=== PATIENT | male | born 1930 | race Caucasian/White ===

== ENCOUNTER 2021-11-07 14:38 | Inpatient (IN) | payer OTHER, MEDICAID ==
[~2021-11-07] VITALS: Ht 167.6 cm; Wt 73.4 kg
[2021-11-07 15:14] LABS: Basophils # (auto) 0.1 10 ^3/uL (0-0.2); Basophils % (auto) 0.8 % (0.0-2.0); Eosinophils # (auto) 0 10 ^3/uL (0-0.8); Hematocrit 34.9 % (41.0-53.0); Hemoglobin 11.6 g/dL (13.5-17.5); Lymphocytes # (auto) 0.8 10 ^3/uL (0.4-5.4); Lymphocytes % (auto) 5.8 % (10.0-50.0); Mean Corpuscular Hemoglobin 30.5 pg (28.0-32.0); Mean Corpuscular Hgb Conc. 33.4 g/dL (32.0-36.0); Mean Corpuscular Volume 91.3 fL (80.0-100.0); Monocytes % (auto) 7.4 % (0.0-12.0); Neutrophils # (auto) 11.4 10 ^3/uL (1.6-8.6); Red Blood Cells 3.82 10^6/uL (4.5-5.90); Red Cell Distribution Width 15.1 % (11.8-14.3); White Blood Cell 13.3 10^3/uL (4.4-10.8)
[2021-11-07] MEDS ORDERED: methylPREDNISolone SOD SUCC 125 MG/2 ML VL IV ONE (15:30)
[2021-11-07 15:43] LABS: Albumin 3.4 g/dL (3.4-5.0); Calcium 9.5 mg/dL (8.5-10.1)
[2021-11-07 15:50] LABS: BUN/Creatinine Ratio 22.4; Bilirubin, Total 0.6 mg/dL (0.2-1.0); CRP High Sensitivity 15.9 mg/dL (< 0.3); Total Protein 8.3 g/dL (6.4-8.2)
[2021-11-07 16:21] LABS: Potassium 2.6 mmol/L (3.5-5.1)
[2021-11-07] MEDS ORDERED: POTASSIUM CHL 20 Meq TABLET PO ONE (16:30)
[2021-11-07] MEDS ORDERED: SODIUM CHLORIDE 0.9% 500 ML IV ONE ×2 (16:30→18:00)
[2021-11-07] MEDS ORDERED: POTASSIUM CHL 20MEQ/100ML 100 ML IV ONE (16:30)
[2021-11-07] MEDS: AZITHROMYCIN 500MG/ 250ML 250 ML IV ONE ×2 (17:28→20:46)
[2021-11-07] MEDS ORDERED: metroNIDAZOLE 500MG/100ML 100 ML IV ONE (17:45)
[2021-11-07] MEDS ORDERED: MORPHINE SULFATE INJ 2 MG/ml SYRG IV PRN ×2 (17:45)
[2021-11-07] MEDS ORDERED: ONDANSETRON HCL 4 MG/2 ML VIAL IV PRN (17:45)
[2021-11-07] MEDS ORDERED: NITROGLYCERIN 0.4 MG SL TAB SL PRN (17:45)
[2021-11-07] MEDS ORDERED: ALBUTEROL SULF HFA 90MCG INH 200DOSE IN PRN (17:45)
[2021-11-07] MEDS ORDERED: DEXTROSE (50%) 50ML SYRG IV PRN (18:00)
[2021-11-07] MEDS ORDERED: SODIUM CHLORIDE 0.9% 1,000 ML IV ONE (18:00)
[2021-11-07 18:24] VITALS: BP 143/79
[2021-11-07] MEDS: POTASSIUM CHL 20MEQ/100ML 100 ML IV SCH ×2 (19:47→22:30)
[2021-11-07 20:40] LABS: Albumin 3.2 g/dL (3.4-5.0); Calcium 9.3 mg/dL (8.5-10.1); Magnesium 2.5 mg/dL (1.6-2.6)
[2021-11-07 20:42] LABS: Basophils # (auto) 0 10 ^3/uL (0-0.2); Basophils % (auto) 0.2 % (0.0-2.0); Eosinophils # (auto) 0 10 ^3/uL (0-0.8); Hematocrit 33.7 % (41.0-53.0); Hemoglobin 11.2 g/dL (13.5-17.5); Lymphocytes # (auto) 1.1 10 ^3/uL (0.4-5.4); Lymphocytes % (auto) 8.5 % (10.0-50.0); Mean Corpuscular Hemoglobin 31.2 pg (28.0-32.0); Mean Corpuscular Hgb Conc. 33.1 g/dL (32.0-36.0); Mean Corpuscular Volume 94.2 fL (80.0-100.0); Monocytes # (auto) 0.5 10 ^3/uL (0-1.3); Monocytes % (auto) 4.3 % (0.0-12.0); Neutrophils # (auto) 10.8 10 ^3/uL (1.6-8.6); Red Blood Cells 3.58 10^6/uL (4.5-5.90); White Blood Cell 12.4 10^3/uL (4.4-10.8)
[2021-11-07 20:50] LABS: BUN/Creatinine Ratio 24.1; Bilirubin, Total 0.4 mg/dL (0.2-1.0); CRP High Sensitivity 14.4 mg/dL (< 0.3); Thyroid Stimulating Hormone 0.36 uIU/mL (0.358-3.74)
[2021-11-07 21:07] LABS: Calcium 9.4 mg/dL (8.5-10.1); Potassium 3.1 mmol/L (3.5-5.1)
[2021-11-07 21:09] LABS: BUN/Creatinine Ratio 24.3
[2021-11-07 22:00] VITALS: BP 154/65
[2021-11-07] MEDS: InsuLIN REG 1unit/0.01ml Soln (100units/ml) SC SCH (22:00)
[2021-11-07] MEDS ORDERED: METF-372 PO (22:38)
[2021-11-07] MEDS ORDERED: CARB25TA79 PO (22:38)
[2021-11-07] MEDS ORDERED: MONT-8 PO (22:38)
[2021-11-07] MEDS ORDERED: GABA800T97 PO (22:38)
[2021-11-07] MEDS ORDERED: METH4PAK3 PO (22:38)
[2021-11-07] MEDS ORDERED: LEVO-28 PO (22:38)
[2021-11-07] MEDS ORDERED: AZIT250T9 PO (22:38)
[2021-11-07] MEDS ORDERED: SIMV-13 PO (22:38)
[2021-11-07] MEDS ORDERED: GUAI120018 PO (22:38)
[2021-11-07] MEDS ORDERED: FURO40TA4 (22:38)
[2021-11-07] MEDS ORDERED: BENZ100C97 PO (22:38)
[2021-11-07] MEDS ORDERED: PANT40T PO (22:38)
[2021-11-07] MEDS ORDERED: PROP60CA37 PO (22:38)
[2021-11-07] MEDS ORDERED: B-CO-6 PO (22:38)
[2021-11-07] MEDS ORDERED: HYDR50TA15 PO (22:38)
[2021-11-07] MEDS: BUDESONIDE (INHALATION) 180 MCG IH IN SCH (22:57)
[2021-11-07] MEDS: ACCU-CHEK COMFORT CURVE STRIP VI SCH (23:31)
[2021-11-08 00:06] LABS: BUN/Creatinine Ratio 24.1; Calcium 8.9 mg/dL (8.5-10.1); Potassium 3.1 mmol/L (3.5-5.1)
[2021-11-08 05:00] VITALS: BP 143/86
[2021-11-08 05:22] LABS: Basophils # (auto) 0 10 ^3/uL (0-0.2); Basophils % (auto) 0.4 % (0.0-2.0); Eosinophils # (auto) 0 10 ^3/uL (0-0.8); Hematocrit 33.6 % (41.0-53.0); Hemoglobin 11.5 g/dL (13.5-17.5); Lymphocytes # (auto) 0.7 10 ^3/uL (0.4-5.4); Lymphocytes % (auto) 6.8 % (10.0-50.0); Mean Corpuscular Hemoglobin 31.2 pg (28.0-32.0); Mean Corpuscular Hgb Conc. 34.1 g/dL (32.0-36.0); Mean Corpuscular Volume 91.5 fL (80.0-100.0); Monocytes # (auto) 0.3 10 ^3/uL (0-1.3); Monocytes % (auto) 2.6 % (0.0-12.0); Neutrophils # (auto) 9.3 10 ^3/uL (1.6-8.6); Neutrophils % (auto) 90.2 % (37.0-80.0); Red Blood Cells 3.67 10^6/uL (4.5-5.90); Red Cell Distribution Width 15.2 % (11.8-14.3); White Blood Cell 10.3 10^3/uL (4.4-10.8)
[2021-11-08 05:53] LABS: Albumin 2.8 g/dL (3.4-5.0); Calcium 8.8 mg/dL (8.5-10.1)
[2021-11-08 05:56] LABS: Bilirubin, Total 0.4 mg/dL (0.2-1.0); Total Protein 7.4 g/dL (6.4-8.2)
[2021-11-08 06:01] LABS: BUN/Creatinine Ratio 25.1
[2021-11-08 06:02] LABS: Potassium 2.9 mmol/L (3.5-5.1)
[2021-11-08 06:15] LABS: Urine Bacteria NONE SEEN /hpf (None Seen); Urine Blood Negative /uL (Negative); Urine Hyaline Cast MOD /lpf (0 - 2); Urine Mucus FEW (None Seen); Urine Specific Gravity 1.017 (1.001-1.035); Urine WBC 1 /hpf (0 - 3)
[2021-11-08] MEDS: ACCU-CHEK COMFORT CURVE STRIP VI SCH ×4 (06:26→21:42)
[2021-11-08] MEDS: InsuLIN REG 1unit/0.01ml Soln (100units/ml) SC SCH ×4 (06:29→21:48)
[2021-11-08] MEDS ORDERED: POTASSIUM CHL 20 Meq TABLET PO ONE (08:15)
[2021-11-08] MEDS ORDERED: POTASSIUM EFFERVESENT TAB 25 MEQ PO ONE (08:30)
[2021-11-08 09:17] VITALS: BP 149/68
[2021-11-08] MEDS: DexAMETHasone SOD PHOS 10MG/1ML VIAL INJ IV SCH (09:45)
[2021-11-08] MEDS: ENOXAPARIN SOD 30 MG/0.3 ML SYRINGE SC SCH (09:46)
[2021-11-08] MEDS: AZITHROMYCIN 500MG/ 250ML 250 ML IV SCH (09:46)
[2021-11-08] MEDS: BUDESONIDE (INHALATION) 180 MCG IH IN SCH ×2 (10:45→21:24)
[2021-11-08 14:59] VITALS: BP 129/76
[2021-11-08] MEDS ORDERED: ALBUTEROL SULF HFA 90MCG INH 200DOSE IN SCH (16:45)
[2021-11-08] MEDS: INSULIN LANTUS (GLARGINE) 1 /0.01ml (100units/ml) SC SCH (16:45)
[2021-11-08 16:57] VITALS: BP 101/57
[2021-11-08 20:00] VITALS: BP 132/61
[2021-11-08] MEDS: ALBUTEROL SULF HFA 90MCG INH 200DOSE IN SCH (21:24)
[2021-11-08] MEDS: ATORVASTATIN 20 MG TAB PO SCH (21:48)
[2021-11-08] MEDS: CARBIDOPA W LEVODOPA 25/100mg TABLET PO SCH (21:48)
[2021-11-08] MEDS: MONTELUKAST SODIUM 10 MG TAB PO SCH (21:48)
[2021-11-08 22:00] VITALS: BP 132/61
[2021-11-09] VITALS (7 sets, daily range): BP systolic 130–152; BP diastolic 65–76
[2021-11-09] MEDS: CARBIDOPA W LEVODOPA 25/100mg TABLET PO SCH ×3 (05:45→21:55)
[2021-11-09] MEDS: BUDESONIDE (INHALATION) 180 MCG IH IN SCH ×2 (06:46→19:13)
[2021-11-09] MEDS: ALBUTEROL SULF HFA 90MCG INH 200DOSE IN SCH ×2 (06:46→19:13)
[2021-11-09] MEDS: ACCU-CHEK COMFORT CURVE STRIP VI SCH ×4 (07:16→21:49)
[2021-11-09] MEDS: InsuLIN REG 1unit/0.01ml Soln (100units/ml) SC SCH ×4 (07:20→21:55)
[2021-11-09] MEDS: DexAMETHasone SOD PHOS 10MG/1ML VIAL INJ IV SCH (09:32)
[2021-11-09] MEDS: ENOXAPARIN SOD 30 MG/0.3 ML SYRINGE SC SCH (09:32)
[2021-11-09] MEDS: AZITHROMYCIN 500MG/ 250ML 250 ML IV SCH (09:32)
[2021-11-09] MEDS: INSULIN LANTUS (GLARGINE) 1 /0.01ml (100units/ml) SC SCH (11:18)
[2021-11-09] MEDS ORDERED: POLYETHYLENE GLYCOL 17 GM PWDR PO ONE (15:00)
[2021-11-09] MEDS ORDERED: DOCUSATE SOD 100 MG CAP PO PRN (15:00)
[2021-11-09 15:34] LABS: BUN/Creatinine Ratio 29.9; Calcium 8.9 mg/dL (8.5-10.1); Potassium 3.9 mmol/L (3.5-5.1)
[2021-11-09] MEDS: MONTELUKAST SODIUM 10 MG TAB PO SCH (21:55)
[2021-11-09] MEDS: ATORVASTATIN 20 MG TAB PO SCH (21:55)
[2021-11-10 05:00] VITALS: BP 157/75
[2021-11-10] MEDS: CARBIDOPA W LEVODOPA 25/100mg TABLET PO SCH ×3 (05:42→21:15)
[2021-11-10] MEDS: ALBUTEROL SULF HFA 90MCG INH 200DOSE IN SCH ×3 (06:46→19:02)
[2021-11-10] MEDS: BUDESONIDE (INHALATION) 180 MCG IH IN SCH ×2 (06:47→19:02)
[2021-11-10] MEDS: InsuLIN REG 1unit/0.01ml Soln (100units/ml) SC SCH ×4 (06:48→21:14)
[2021-11-10] MEDS: ACCU-CHEK COMFORT CURVE STRIP VI SCH ×4 (06:48→21:08)
[2021-11-10 08:44] VITALS: BP 142/68
[2021-11-10] MEDS: ENOXAPARIN SOD 30 MG/0.3 ML SYRINGE SC SCH (10:07)
[2021-11-10] MEDS: DexAMETHasone SOD PHOS 10MG/1ML VIAL INJ IV SCH (10:08)
[2021-11-10] MEDS: AZITHROMYCIN 500MG/ 250ML 250 ML IV SCH (10:08)
[2021-11-10] MEDS: INSULIN LANTUS (GLARGINE) 1 /0.01ml (100units/ml) SC SCH (11:45)
[2021-11-10 13:00] VITALS: BP 143/81
[2021-11-10 15:34] LABS: Basophils # (auto) 0 10 ^3/uL (0-0.2); Basophils % (auto) 0.2 % (0.0-2.0); Eosinophils # (auto) 0 10 ^3/uL (0-0.8); Hematocrit 31.1 % (41.0-53.0); Hemoglobin 10.2 g/dL (13.5-17.5); Lymphocytes # (auto) 0.6 10 ^3/uL (0.4-5.4); Lymphocytes % (auto) 3.9 % (10.0-50.0); Mean Corpuscular Hemoglobin 30.4 pg (28.0-32.0); Mean Corpuscular Volume 92.1 fL (80.0-100.0); Monocytes # (auto) 0.4 10 ^3/uL (0-1.3); Neutrophils # (auto) 13.6 10 ^3/uL (1.6-8.6); Neutrophils % (auto) 92.9 % (37.0-80.0); Nucleated Red Blood Cells % 0.1 %; Red Blood Cells 3.37 10^6/uL (4.5-5.90); Red Cell Distribution Width 14.8 % (11.8-14.3); White Blood Cell 14.7 10^3/uL (4.4-10.8)
[2021-11-10 16:13] LABS: Potassium 4.3 mmol/L (3.5-5.1)
[2021-11-10 16:17] LABS: BUN/Creatinine Ratio 29.5; Calcium 8.9 mg/dL (8.5-10.1)
[2021-11-10 16:37] VITALS: BP 134/65
[2021-11-10] MEDS: ATORVASTATIN 20 MG TAB PO SCH (21:14)
[2021-11-10] MEDS: MONTELUKAST SODIUM 10 MG TAB PO SCH (21:15)
[2021-11-10 21:42] VITALS: BP 151/70
[2021-11-10 23:03] VITALS: BP 151/70
[2021-11-11] MEDS ORDERED: MELATONIN 5 MG TAB ONE (01:22)
[2021-11-11 04:27] VITALS: BP 164/79
[2021-11-11] MEDS: CARBIDOPA W LEVODOPA 25/100mg TABLET PO SCH ×2 (05:59→15:17)
[2021-11-11] MEDS: ACCU-CHEK COMFORT CURVE STRIP VI SCH ×3 (05:59→17:00)
[2021-11-11] MEDS: InsuLIN REG 1unit/0.01ml Soln (100units/ml) SC SCH ×3 (06:00→17:00)
[2021-11-11 06:30] LABS: Basophils # (auto) 0 10 ^3/uL (0-0.2); Basophils % (auto) 0.2 % (0.0-2.0); Eosinophils # (auto) 0 10 ^3/uL (0-0.8); Hematocrit 30.2 % (41.0-53.0); Hemoglobin 10.4 g/dL (13.5-17.5); Lymphocytes # (auto) 0.9 10 ^3/uL (0.4-5.4); Lymphocytes % (auto) 8.2 % (10.0-50.0); Mean Corpuscular Hemoglobin 31.6 pg (28.0-32.0); Mean Corpuscular Hgb Conc. 34.3 g/dL (32.0-36.0); Monocytes # (auto) 0.8 10 ^3/uL (0-1.3); Monocytes % (auto) 7.3 % (0.0-12.0); Neutrophils # (auto) 8.8 10 ^3/uL (1.6-8.6); Neutrophils % (auto) 84.3 % (37.0-80.0); Nucleated Red Blood Cells % 0.1 %; Red Blood Cells 3.29 10^6/uL (4.5-5.90); Red Cell Distribution Width 14.6 % (11.8-14.3); White Blood Cell 10.4 10^3/uL (4.4-10.8)
[2021-11-11 06:36] LABS: Potassium 4.1 mmol/L (3.5-5.1)
[2021-11-11 06:42] LABS: Albumin 2.4 g/dL (3.4-5.0); Calcium 8.9 mg/dL (8.5-10.1)
[2021-11-11 06:45] LABS: Bilirubin, Total 0.2 mg/dL (0.2-1.0); Total Protein 6.3 g/dL (6.4-8.2)
[2021-11-11 09:00] VITALS: BP 158/74
[2021-11-11] MEDS: ALBUTEROL SULF HFA 90MCG INH 200DOSE IN SCH ×3 (09:56→18:39)
[2021-11-11] MEDS: BUDESONIDE (INHALATION) 180 MCG IH IN SCH ×2 (09:56→18:39)
[2021-11-11] MEDS ORDERED: AZITHROMYCIN 250 MG TAB PO SCH (10:00)
[2021-11-11] MEDS ORDERED: ENOXAPARIN SOD 40 MG/0.4 ML SYRINGE SC SCH (10:00)
[2021-11-11] MEDS: DexAMETHasone SOD PHOS 10MG/1ML VIAL INJ IV SCH (10:01)
[2021-11-11 13:00] VITALS: BP 122/68
[2021-11-11] MEDS: INSULIN LANTUS (GLARGINE) 1 /0.01ml (100units/ml) SC SCH (13:00)
[2021-11-11] MEDS ORDERED: DEXA6TAB6 PO (15:44)
[2021-11-11] MEDS ORDERED: ALBUAER3 IN (15:44)
[2021-11-11 17:18] VITALS: BP 139/75
[2021-11-11 18:44] VITALS: BP 125/80
[2021-11-11] MEDS ORDERED: MELATONIN 5 MG TAB PO ONE (22:00)
== END 2021-11-11 19:12 | disposition home health service (06) | DRG 871 ==
LOC: ER 14:44 → TELE 17:44 → TELE-EAST 22:03
PROVIDERS: ADMIT Registered Nurse; ATTEND Internal Medicine
DX: A41.9 Sepsis, unspecified organism (principal); J12.82 Pneumonia due to coronavirus disease 2019; U07.1 COVID-19; J96.01 Acute respiratory failure with hypoxia; N17.9 Acute kidney failure, unspecified; C61 Malignant neoplasm of prostate; E11.22 Type 2 diabetes mellitus with diabetic chronic kidney disease; E78.5 Hyperlipidemia, unspecified; E87.6 Hypokalemia; G20 Parkinson's disease; I12.9 Hypertensive chronic kidney disease with stage 1 through stage 4 chronic kidney disease, or unspecified chronic kidney disease; N18.32 Chronic kidney disease, stage 3b; K59.09 Other constipation; I95.9 Hypotension, unspecified; R79.89 Other specified abnormal findings of blood chemistry; D63.1 Anemia in chronic kidney disease; Z85.46 Personal history of malignant neoplasm of prostate; Z90.79 Acquired absence of other genital organ(s)
CPT/HCPCS: 36415; 36600; 71045; 71046; 80048; 80053; 80061; 81001; 82306; 82728; 82805; 82962; 83036; 83605; 83615; 83735; 83880; 84132; 84443; 85025; 85379; 86141; 87040; 92610; 93005; 93970; 94640; 96361; 96365; 96367; 96375; 97110; 97116; 97163; 97530; G0378; J1100; J1815; J3480; J3490

== ENCOUNTER 2022-02-25 21:06 | Inpatient (IN) | payer OTHER, MEDICAID ==
[~2022-02-25] VITALS: Ht 170.2 cm; Wt 78.6 kg
[~2022-02-25 21:06] MED LIST: ALBUAER3 IN; AZIT250T9 PO; B-CO-6 PO; BENZ100C97 PO; CARB25TA79 PO; DEXA6TAB6 PO; FURO40TA4; GABA800T97 PO; GUAI120018 PO; HYDR50TA15 PO; METF-372 PO; MONT-8 PO; PANT40T PO; PROP60CA37 PO; SIMV-13 PO
[2022-02-25 23:17] LABS: Basophils # (auto) 0.1 10 ^3/uL (0-0.2); Basophils % (auto) 1.4 % (0.0-2.0); Eosinophils # (auto) 0.4 10 ^3/uL (0-0.8); Eosinophils % (auto) 5.8 % (0.0-7.0); Hematocrit 30.7 % (41.0-53.0); Hemoglobin 10.2 g/dL (13.5-17.5); Lymphocytes # (auto) 2.4 10 ^3/uL (0.4-5.4); Lymphocytes % (auto) 31.9 % (10.0-50.0); Mean Corpuscular Hemoglobin 31.6 pg (28.0-32.0); Mean Corpuscular Volume 95.5 fL (80.0-100.0); Monocytes # (auto) 0.8 10 ^3/uL (0-1.3); Neutrophils # (auto) 3.9 10 ^3/uL (1.6-8.6); Neutrophils % (auto) 50.9 % (37.0-80.0); Red Blood Cells 3.22 10^6/uL (4.5-5.90); Red Cell Distribution Width 14.2 % (11.8-14.3); White Blood Cell 7.6 10^3/uL (4.4-10.8)
[2022-02-25] MEDS ORDERED: LACTATED RINGER'S 1,000 ML IV ONE (23:30)
[2022-02-25 23:31] LABS: Albumin 3.7 g/dL (3.4-5.0); Anion Gap 10 (5-15); Blood Alcohol < 3.0 mg/dL (0-5); Blood Urea Nitrogen 31 mg/dL (7-18); Calcium 9.1 mg/dL (8.5-10.1); Carbon Dioxide 22 mmol/L (21-32); Chloride 108 mmol/L (98-107); Glucose 112 mg/dL (74-106); Potassium 4.2 mmol/L (3.5-5.1); Sodium 140 mmol/L (136-145)
[2022-02-25 23:34] LABS: Alanine Aminotransferase 24 U/L (16-61); Alkaline Phosphatase 104 U/L (45-117); Aspartate Aminotransferase 23 U/L (15-37); BUN/Creatinine Ratio 17.4; Bilirubin, Total 0.2 mg/dL (0.2-1.0); GFR African American 47 mL/min; GFR Non-African American 38 mL/min; Total Protein 6.8 g/dL (6.4-8.2)
[2022-02-26 06:10] LABS: Alcohol, Urine < 3.0 mg/dL (0-10); Amphetamine Screen, Urine NEGATIVE (NEGATIVE); Barbiturate Scree,Urine NEGATIVE (NEGATIVE); Benzodiazephine Screen, Urine NEGATIVE (NEGATIVE); Cannabinoid Screen, Urine NEGATIVE (NEGATIVE); Cocaine Screen, Urine NEGATIVE (NEGATIVE); Opiate Scree,Urine NEGATIVE (NEGATIVE); Phencyclidine Screen, Urine NEGATIVE (NEGATIVE)
[2022-02-26 06:53] LABS: Urine Blood Negative /uL (Negative); Urine Specific Gravity 1.009 (1.001-1.035)
[2022-02-26] MEDS ORDERED: DEXTROSE (50%) 50ML SYRG IV PRN (09:00)
[2022-02-26] MEDS ORDERED: hydrALAZINE HCL 20 MG/ML VL IV PRN (09:00)
[2022-02-26] MEDS ORDERED: NITROGLYCERIN 0.4 MG SL TAB SL PRN (09:00)
[2022-02-26] MEDS ORDERED: MORPHINE SULFATE INJ 2 MG/ml SYRG IV PRN (09:00)
[2022-02-26] MEDS ORDERED: GABAPENTIN 400 MG CAP PO SCH ×2 (10:00→17:00)
[2022-02-26 10:29] LABS: Cholesterol 173 mg/dL (< 200); Triglycerides 154 mg/dL (< 150)
[2022-02-26 10:31] LABS: HDL Cholesterol 50 mg/dL (40-59); LDL Cholesterol 98 mg/dL (< 100)
[2022-02-26] MEDS: InsuLIN REG 1unit/0.01ml Soln (100units/ml) SC SCH ×3 (11:30→21:33)
[2022-02-26] MEDS: ACCU-CHEK COMFORT CURVE STRIP VI SCH ×3 (11:30→21:33)
[2022-02-26] MEDS: FUROSEMIDE 40 MG TAB PO SCH (11:49)
[2022-02-26] MEDS: ENOXAPARIN SOD 30 MG/0.3 ML SYRINGE SC SCH (11:50)
[2022-02-26] MEDS: PANTOPRAZOLE 40 MG TAB PO SCH (11:50)
[2022-02-26] MEDS: PROPRANOLOL HCL 20 MG TAB PO SCH (11:53)
[2022-02-26] MEDS: hydrALAZINE HCL 25 MG TAB PO SCH ×2 (11:56→21:38)
[2022-02-26] MEDS: LEVODOPA PO SCH ×2 (14:00→21:37)
[2022-02-26] MEDS: CARBIDOPA PO SCH ×2 (14:00→21:37)
[2022-02-26 16:58] VITALS: BP 127/72
[2022-02-26] MEDS ORDERED: LORazepam 2MG/ML-1ML VIAL IV PRN (17:00)
[2022-02-26] MEDS: PREGABALIN 25 MG CAP PO SCH (18:57)
[2022-02-26] MEDS: SOD CHL 0.45% 1,000 ML IV SCH ×2 (18:58→22:20)
[2022-02-26 19:31] LABS: % Iron Saturation 12.4 % (20-55)
[2022-02-26 19:37] LABS: Ferritin 20.6 ng/mL (10-322)
[2022-02-26] MEDS: GABAPENTIN 300 MG CAP PO SCH (21:05)
[2022-02-26] MEDS: ATORVASTATIN 20 MG TAB PO SCH (21:38)
[2022-02-26 22:11] VITALS: BP 127/70
[2022-02-27 05:00] VITALS: BP 125/70
[2022-02-27] MEDS: CARBIDOPA PO SCH ×2 (06:00→14:00)
[2022-02-27] MEDS: LEVODOPA PO SCH ×2 (06:00→14:00)
[2022-02-27 06:04] LABS: Basophils # (auto) 0.1 10 ^3/uL (0-0.2); Basophils % (auto) 0.9 % (0.0-2.0); Eosinophils # (auto) 0.2 10 ^3/uL (0-0.8); Eosinophils % (auto) 3.7 % (0.0-7.0); Hematocrit 29.4 % (41.0-53.0); Hemoglobin 9.8 g/dL (13.5-17.5); Lymphocytes # (auto) 2.7 10 ^3/uL (0.4-5.4); Lymphocytes % (auto) 41.3 % (10.0-50.0); Mean Corpuscular Hemoglobin 31.8 pg (28.0-32.0); Mean Corpuscular Hgb Conc. 33.3 g/dL (32.0-36.0); Mean Corpuscular Volume 95.5 fL (80.0-100.0); Monocytes # (auto) 0.7 10 ^3/uL (0-1.3); Monocytes % (auto) 10.8 % (0.0-12.0); Neutrophils # (auto) 2.8 10 ^3/uL (1.6-8.6); Neutrophils % (auto) 43.3 % (37.0-80.0); Nucleated Red Blood Cells % 0.1 %; Red Blood Cells 3.08 10^6/uL (4.5-5.90); Red Cell Distribution Width 14.6 % (11.8-14.3); White Blood Cell 6.6 10^3/uL (4.4-10.8)
[2022-02-27] MEDS: InsuLIN REG 1unit/0.01ml Soln (100units/ml) SC SCH ×4 (06:22→22:00)
[2022-02-27] MEDS: ACCU-CHEK COMFORT CURVE STRIP VI SCH ×4 (06:23→22:23)
[2022-02-27 06:27] LABS: Calcium 8.3 mg/dL (8.5-10.1); Potassium 3.5 mmol/L (3.5-5.1)
[2022-02-27 06:30] LABS: BUN/Creatinine Ratio 17.9
[2022-02-27 06:32] LABS: Bilirubin, Total 0.4 mg/dL (0.2-1.0); Total Protein 5.6 g/dL (6.4-8.2)
[2022-02-27 09:00] VITALS: BP 133/66
[2022-02-27] MEDS ORDERED: GABAPENTIN 300 MG CAP PO SCH (10:00)
[2022-02-27] MEDS: hydrALAZINE HCL 25 MG TAB PO SCH ×2 (10:18→22:30)
[2022-02-27] MEDS: PROPRANOLOL HCL 20 MG TAB PO SCH (10:19)
[2022-02-27] MEDS: ENOXAPARIN SOD 30 MG/0.3 ML SYRINGE SC SCH (10:19)
[2022-02-27] MEDS: PANTOPRAZOLE 40 MG TAB PO SCH (10:19)
[2022-02-27] MEDS: FUROSEMIDE 40 MG TAB PO SCH (10:19)
[2022-02-27] MEDS: GABAPENTIN 300 MG CAP PO SCH ×2 (10:19→23:30)
[2022-02-27] MEDS: SOD CHL 0.45% 1,000 ML IV SCH (11:40)
[2022-02-27 12:30] VITALS: BP 118/58
[2022-02-27 13:41] LABS: Folate (Folic Acid) > 24.00 ng/mL (5.38-24)
[2022-02-27] MEDS: CARBIDOPA W LEVODOPA 25/100mg TABLET PO SCH ×3 (14:45→23:30)
[2022-02-27 15:28] LABS: BUN/Creatinine Ratio 17.8; Potassium 3.7 mmol/L (3.5-5.1)
[2022-02-27 15:36] LABS: Basophils # (auto) 0 10 ^3/uL (0-0.2); Basophils % (auto) 0.4 % (0.0-2.0); Eosinophils # (auto) 0.3 10 ^3/uL (0-0.8); Eosinophils % (auto) 3.5 % (0.0-7.0); Hematocrit 32.4 % (41.0-53.0); Hemoglobin 10.8 g/dL (13.5-17.5); Lymphocytes # (auto) 2.7 10 ^3/uL (0.4-5.4); Lymphocytes % (auto) 30.7 % (10.0-50.0); Mean Corpuscular Hemoglobin 31.6 pg (28.0-32.0); Mean Corpuscular Hgb Conc. 33.4 g/dL (32.0-36.0); Mean Corpuscular Volume 94.6 fL (80.0-100.0); Monocytes # (auto) 0.8 10 ^3/uL (0-1.3); Monocytes % (auto) 9.6 % (0.0-12.0); Neutrophils # (auto) 4.8 10 ^3/uL (1.6-8.6); Neutrophils % (auto) 55.8 % (37.0-80.0); Red Blood Cells 3.42 10^6/uL (4.5-5.90); Red Cell Distribution Width 14.3 % (11.8-14.3); White Blood Cell 8.7 10^3/uL (4.4-10.8)
[2022-02-27 16:35] VITALS: BP 103/74
[2022-02-27] MEDS: PREGABALIN 25 MG CAP PO SCH (18:30)
[2022-02-27 21:38] VITALS: BP 108/65
[2022-02-27] MEDS: ATORVASTATIN 20 MG TAB PO SCH (22:31)
[2022-02-28] MEDS: SOD CHL 0.45% 1,000 ML IV SCH ×2 (01:00→13:59)
[2022-02-28 05:00] VITALS: BP 116/56
[2022-02-28 05:45] LABS: Basophils # (auto) 0 10 ^3/uL (0-0.2); Basophils % (auto) 0.3 % (0.0-2.0); Eosinophils # (auto) 0.4 10 ^3/uL (0-0.8); Eosinophils % (auto) 4.5 % (0.0-7.0); Hematocrit 28.9 % (41.0-53.0); Hemoglobin 9.7 g/dL (13.5-17.5); Lymphocytes # (auto) 2.8 10 ^3/uL (0.4-5.4); Lymphocytes % (auto) 34.3 % (10.0-50.0); Mean Corpuscular Hemoglobin 31.4 pg (28.0-32.0); Mean Corpuscular Hgb Conc. 33.5 g/dL (32.0-36.0); Mean Corpuscular Volume 93.7 fL (80.0-100.0); Monocytes # (auto) 0.9 10 ^3/uL (0-1.3); Monocytes % (auto) 10.5 % (0.0-12.0); Neutrophils # (auto) 4.1 10 ^3/uL (1.6-8.6); Neutrophils % (auto) 50.4 % (37.0-80.0); Red Blood Cells 3.08 10^6/uL (4.5-5.90); Red Cell Distribution Width 14.8 % (11.8-14.3); White Blood Cell 8.1 10^3/uL (4.4-10.8)
[2022-02-28 05:55] LABS: BUN/Creatinine Ratio 19.8; Calcium 8.8 mg/dL (8.5-10.1); Potassium 3.4 mmol/L (3.5-5.1)
[2022-02-28] MEDS: ACCU-CHEK COMFORT CURVE STRIP VI SCH ×4 (07:00→23:08)
[2022-02-28] MEDS: InsuLIN REG 1unit/0.01ml Soln (100units/ml) SC SCH ×4 (07:00→22:00)
[2022-02-28] MEDS: CARBIDOPA W LEVODOPA 25/100mg TABLET PO SCH ×2 (10:07→23:07)
[2022-02-28] MEDS: ENOXAPARIN SOD 30 MG/0.3 ML SYRINGE SC SCH (10:07)
[2022-02-28] MEDS: GABAPENTIN 300 MG CAP PO SCH (10:07)
[2022-02-28] MEDS: PROPRANOLOL HCL 20 MG TAB PO SCH (10:09)
[2022-02-28] MEDS: hydrALAZINE HCL 25 MG TAB PO SCH ×2 (10:09→23:07)
[2022-02-28] MEDS: FUROSEMIDE 40 MG TAB PO SCH (10:09)
[2022-02-28 10:11] VITALS: BP 118/58
[2022-02-28] MEDS: PANTOPRAZOLE 40 MG TAB PO SCH (10:11)
[2022-02-28 11:58] VITALS: BP 101/42
[2022-02-28] MEDS ORDERED: LIDOCAINE 2% JELLY 11ml (GLYDO) UR ONE (14:15)
[2022-02-28] MEDS ORDERED: POTASSIUM CHL 20MEQ/100ML 100 ML IV ONE (15:45)
[2022-02-28] MEDS ORDERED: ACETAMINOPHEN 325 MG TAB PO PRN (16:30)
[2022-02-28 16:53] VITALS: BP 141/66
[2022-02-28] MEDS: PREGABALIN 25 MG CAP PO SCH (17:43)
[2022-02-28] MEDS ORDERED: LIDOCAINE 1% HCL (LOCAL ANESTH.) INJ 20ML MDV ID ONE ×2 (18:15→18:30)
[2022-02-28] MEDS ORDERED: fentaNYL CITRATE 100 MCG/2 ML VL ONE (20:01)
[2022-02-28] MEDS ORDERED: MIDAZOLAM HCL 2MG/2ML 2ml VIAL (1mg/ml) ONE (20:02)
[2022-02-28] MEDS ORDERED: ROCURONIUM 10MG/ML 10ML VIAL IV ONE (20:02)
[2022-02-28] MEDS ORDERED: SUCCINYLCHOLINE CHLORIDE 20 MG/ML 10ML VIAL IV ONE (20:05)
[2022-02-28 20:06] LABS: INR 1.08 (0.9-1.15)
[2022-02-28] MEDS ORDERED: PROPOFOL 10 MG/ML 20 ML IV ONE (20:07)
[2022-02-28] MEDS ORDERED: ONDANSETRON HCL 4 MG/2 ML VIAL ONE (20:08)
[2022-02-28] MEDS ORDERED: LIDOCAINE 2% (LOCAL ANESTH.) PF 5ml SDV ONE (20:08)
[2022-02-28] MEDS ORDERED: NEOSTIGMINE 1 MG/ML INJ (10mg/10ML VIAL) ONE (20:53)
[2022-02-28] MEDS ORDERED: GLYCOPYRROLATE 0.2 MG/ML 1ML VIAL ONE ×2 (20:53→21:02)
[2022-02-28] MEDS ORDERED: ONDANSETRON HCL 4 MG/2 ML VIAL IV PRN (21:15)
[2022-02-28] MEDS ORDERED: HYDROmorphone HCL 2 MG/ML VL/or syr IV PRN ×2 (21:15)
[2022-02-28 22:00] VITALS: BP 167/72
[2022-02-28] MEDS: ATORVASTATIN 20 MG TAB PO SCH (23:07)
[2022-03-01] MEDS: HYDROcodone-ACET 5/325MG TAB PO PRN (03:39)
[2022-03-01] MEDS: SOD CHL 0.45% 1,000 ML IV SCH ×2 (03:40→13:34)
[2022-03-01 05:00] VITALS: BP 135/73
[2022-03-01] MEDS: InsuLIN REG 1unit/0.01ml Soln (100units/ml) SC SCH ×4 (07:00→23:09)
[2022-03-01] MEDS: ACCU-CHEK COMFORT CURVE STRIP VI SCH ×4 (07:13→22:55)
[2022-03-01 07:55] LABS: Basophils # (auto) 0 10 ^3/uL (0-0.2); Basophils % (auto) 0.3 % (0.0-2.0); Eosinophils # (auto) 0.2 10 ^3/uL (0-0.8); Eosinophils % (auto) 2.3 % (0.0-7.0); Hematocrit 29.6 % (41.0-53.0); Hemoglobin 9.9 g/dL (13.5-17.5); Lymphocytes # (auto) 2.4 10 ^3/uL (0.4-5.4); Lymphocytes % (auto) 24.7 % (10.0-50.0); Mean Corpuscular Hemoglobin 31.6 pg (28.0-32.0); Mean Corpuscular Hgb Conc. 33.6 g/dL (32.0-36.0); Mean Corpuscular Volume 94.1 fL (80.0-100.0); Monocytes # (auto) 1.3 10 ^3/uL (0-1.3); Monocytes % (auto) 13.9 % (0.0-12.0); Neutrophils # (auto) 5.6 10 ^3/uL (1.6-8.6); Neutrophils % (auto) 58.8 % (37.0-80.0); Red Blood Cells 3.14 10^6/uL (4.5-5.90); Red Cell Distribution Width 14.2 % (11.8-14.3); White Blood Cell 9.6 10^3/uL (4.4-10.8)
[2022-03-01 08:00] VITALS: BP 113/57
[2022-03-01 08:08] LABS: Potassium 3.9 mmol/L (3.5-5.1)
[2022-03-01 08:17] LABS: BUN/Creatinine Ratio 21.5; Calcium 8.7 mg/dL (8.5-10.1)
[2022-03-01 09:00] VITALS: BP 113/57
[2022-03-01] MEDS ORDERED: GABAPENTIN 300 MG CAP PO SCH (10:00)
[2022-03-01] MEDS ORDERED: GABAPENTIN 100 MG CAP PO SCH (10:00)
[2022-03-01] MEDS: PROPRANOLOL HCL 20 MG TAB PO SCH (10:51)
[2022-03-01] MEDS: PANTOPRAZOLE 40 MG TAB PO SCH (10:51)
[2022-03-01] MEDS: hydrALAZINE HCL 25 MG TAB PO SCH ×2 (10:51→22:55)
[2022-03-01] MEDS: ENOXAPARIN SOD 30 MG/0.3 ML SYRINGE SC SCH (10:52)
[2022-03-01] MEDS: CARBIDOPA W LEVODOPA 25/100mg TABLET PO SCH ×2 (10:52→22:56)
[2022-03-01 11:41] VITALS: BP 90/37
[2022-03-01] MEDS: guaiFENesin 200 MG/10 ML UD GT PRN (14:51)
[2022-03-01 16:59] VITALS: BP 134/53
[2022-03-01] MEDS: PREGABALIN 25 MG CAP PO SCH (18:00)
[2022-03-01 22:00] VITALS: BP 112/50
[2022-03-01] MEDS: ATORVASTATIN 20 MG TAB PO SCH (22:56)
[2022-03-02] MEDS: guaiFENesin 200 MG/10 ML UD GT PRN (02:38)
[2022-03-02] MEDS: HYDROcodone-ACET 5/325MG TAB PO PRN (02:39)
[2022-03-02 05:00] VITALS: BP 113/44
[2022-03-02] MEDS: InsuLIN REG 1unit/0.01ml Soln (100units/ml) SC SCH ×3 (06:52→16:43)
[2022-03-02] MEDS: ACCU-CHEK COMFORT CURVE STRIP VI SCH ×3 (06:52→16:44)
[2022-03-02] MEDS: hydrALAZINE HCL 25 MG TAB PO SCH (08:48)
[2022-03-02] MEDS: ENOXAPARIN SOD 30 MG/0.3 ML SYRINGE SC SCH (08:48)
[2022-03-02] MEDS: CARBIDOPA W LEVODOPA 25/100mg TABLET PO SCH (08:48)
[2022-03-02] MEDS: PANTOPRAZOLE 40 MG TAB PO SCH (08:49)
[2022-03-02] MEDS: PROPRANOLOL HCL 20 MG TAB PO SCH (08:49)
[2022-03-02 09:00] VITALS: BP 117/47
[2022-03-02 11:58] LABS: BUN/Creatinine Ratio 21.4; Calcium 8.9 mg/dL (8.5-10.1); Potassium 3.7 mmol/L (3.5-5.1)
[2022-03-02] MEDS ORDERED: POTASSIUM CHL 20 Meq TABLET PO ONE (12:45)
[2022-03-02 13:00] VITALS: BP 124/86
[2022-03-02 16:37] VITALS: BP 116/47
[2022-03-02 16:39] VITALS: BP 116/47
== END 2022-03-02 18:00 | disposition home or self-care (01) | DRG 981 ==
LOC: ER 21:06 → TELE 02-26 08:56 → TELE-CENTR 02-26 16:36
PROVIDERS: ADMIT Registered Nurse; ATTEND Internal Medicine
PROC: 0TQD8ZZ Repair Urethra, Via Natural or Artificial Opening Endoscopic (ICD-10-PCS; principal; 2022-02-28 20:00)
DX: E86.0 Dehydration (principal); G93.41 Metabolic encephalopathy; N17.0 Acute kidney failure with tubular necrosis; N36.5 Urethral false passage; E78.5 Hyperlipidemia, unspecified; D63.1 Anemia in chronic kidney disease; E11.22 Type 2 diabetes mellitus with diabetic chronic kidney disease; G20 Parkinson's disease; H91.90 Unspecified hearing loss, unspecified ear; E87.6 Hypokalemia; I12.9 Hypertensive chronic kidney disease with stage 1 through stage 4 chronic kidney disease, or unspecified chronic kidney disease; I35.0 Nonrheumatic aortic (valve) stenosis; N18.32 Chronic kidney disease, stage 3b; Z20.822 Contact with and (suspected) exposure to COVID-19; F17.200 Nicotine dependence, unspecified, uncomplicated; N32.0 Bladder-neck obstruction; R31.0 Gross hematuria; Z79.84 Long term (current) use of oral hypoglycemic drugs; Z79.899 Other long term (current) drug therapy; Z85.46 Personal history of malignant neoplasm of prostate; Z91.81 History of falling; Z92.3 Personal history of irradiation; Z98.2 Presence of cerebrospinal fluid drainage device
CPT/HCPCS: 36415; 70450; 70551; 71045; 73560; 73620; 76775; 80048; 80053; 80061; 80307; 80320; 81001; 82306; 82607; 82728; 82746; 82962; 83036; 83540; 83550; 83970; 84100; 84443; 84484; 85025; 85610; 87426; 93005; 93306; 93886; 95819; 96372; 97110; 97116; 97163; 97530; G0378; J0330; J1815; J2001; J2250; J2405; J2704; J3480